=== PATIENT | female | born 2000 | race Caucasian/White ===

== ENCOUNTER 2020-02-11 21:32 | Emergency (ER) | payer BC ==
--- NOTE | 2020-02-11 21:54 | EDM.PDOC ---
ED HPI GENERAL MEDICAL PROBLEM - General Chief Complaint: Respiratory Problem Stated Complaint: CHEST PAIN Time Seen by Provider: 02/11/20 21:45 Source of Information: Reports: Patient History Limitations: Reports: No Limitations - History of Present Illness INITIAL COMMENTS - FREE TEXT/NARRATIVE: pt is 10 days since diagnosis with COVID , developed chest radiation to the arm and sob has low grade fever has no medical problems Onset: Today Onset Date: 02/12/20 Duration: Waxing/Waning Location: Reports: Chest Quality: Reports: Ache Severity: Mild Improves with: Reports: None Worsens with: Reports: None Context: Reports: Activity Associated Symptoms: Reports: Diaphoresis, Malaise - Related Data Allergies Allergy/AdvReac Type Severity Reaction Status Date / Time amoxicillin Allergy Rash Verified 02/11/20 22:11 Home Meds: Home Meds dexAMETHasone [Dexamethasone] 6 mg PO DAILY 10 Days tab 02/12/20 [Rx] ED ROS GENERAL - Review of Systems Review Of Systems: See Below Constitutional: Reports: No Symptoms HEENT: Reports: No Symptoms Respiratory: Reports: Shortness of Breath, Pleuritic Chest Pain Cardiovascular: Reports: No Symptoms Endocrine: Reports: No Symptoms GI/Abdominal: Reports: No Symptoms Musculoskeletal: Reports: No Symptoms Skin: Reports: No Symptoms Neurological: Reports: No Symptoms Psychiatric: Reports: No Symptoms Hematologic/Lymphatic: Reports: No Symptoms Immunologic: Reports: No Symptoms ED EXAM, GENERAL - Physical Exam Exam: See Below Exam Limited By: No Limitations General Appearance: Alert, WD/WN, No Apparent Distress Eye Exam: Bilateral Eye: EOMI Ears: Normal External Exam Nose: Normal Inspection Throat/Mouth: Normal Oropharynx Head: Atraumatic, Normocephalic Neck: Supple, Non-Tender Respiratory/Chest: No Respiratory Distress, Lungs Clear Cardiovascular: Normal Peripheral Pulses, Regular Rate, Rhythm GI/Abdominal: Soft, Non-Tender Neurological: Alert, Oriented, CN II-XII Intact Psychiatric: Normal Affect, Normal Mood Skin Exam: Warm, Dry, Intact Course - Vital Signs Last Recorded V/S: Last Vital Signs Temp 36.7 C 02/11/20 22:12 Pulse 89 02/11/20 22:12 Resp 22 H 02/11/20 22:12 BP 131/74 02/11/20 22:12 Pulse Ox 100 02/11/20 22:12 - Orders/Labs/Meds Orders: Active Orders 24 hr Category Date Time Status EKG Documentation Completion [RC] ASDIRECTED Care 02/11/20 21:53 Active Chest wo Cont [CT] Stat Exams 02/11/20 21:48 Taken EKG 12 Lead [EK] Routine Ther 02/11/20 21:53 Ordered Labs: Laboratory Tests 02/11/20 02/11/20 02/11/20 Range/Units 22:05 22:05 22:05 WBC 7.1 (3.0-10.3) x10-3/uL RBC 4.69 (3.60-5.20) x10(6)uL Hgb 14.7 (11.4-15.5) g/dL Hct 43.7 (34.2-48.2) % MCV 93.1 (76.7-100.5) fL MCH 31.3 (23.9-33.9) pg MCHC 33.6 (31.9-34.8) g/dL RDW 12.4 (12.3-16.5) % Plt Count 228 (151-488) x10(3)uL MPV 9.3 (7.1-12.4) fL Neut % (Auto) 51.3 (30.8-76.2) % Lymph % (Auto) 40.2 (18.4-52.1) % Lyon % (Auto) 6.6 (4.4-15.7) % Eos % (Auto) 1.2 (0.6-8.1) % Baso % (Auto) 0.7 (0.2-1.5) % Neut # (Auto) 3.7 (1.5-6.3) x10-3/uL Lymph # (Auto) 2.9 (1.0-4.4) x10-3/uL Lyon # (Auto) 0.5 (0.3-1.0) x10-3/uL Eos # (Auto) 0.1 (0.0-0.8) x10-3/uL Baso # (Auto) 0.1 (0.0-0.1) x10-3/uL D-Dimer, Quantitative 0.37 (0.0-0.59) mg/LFEU C-Reactive Protein 0.2 L (0.5-0.9) mg/dL Urine Color (YELLOW) Urine Appearance (CLEAR) Urine pH (5.0-6.5) Ur Specific Leslie (1.010-1.025) Urine Protein (NEGATIVE) mg/dL Urine Glucose (UA) (NORMAL) mg/dL Urine Ketones (NEGATIVE) mg/dL Urine Occult Blood (NEGATIVE) Urine Nitrite (NEGATIVE) Urine Bilirubin (NEGATIVE) Urine Urobilinogen (NEGATIVE) mg/dL Ur Leukocyte Esterase (NEGATIVE) Urine RBC (0-5) Urine WBC (0-5) Ur Squamous Epith Cells (NS,R,O) Urine Bacteria (NS) Urine HCG, Qual (NEGATIVE) 02/11/20 02/11/20 Range/Units 22:24 22:24 WBC (3.0-10.3) x10-3/uL RBC (3.60-5.20) x10(6)uL Hgb (11.4-15.5) g/dL Hct (34.2-48.2) % MCV (76.7-100.5) fL MCH (23.9-33.9) pg MCHC (31.9-34.8) g/dL RDW (12.3-16.5) % Plt Count (151-488) x10(3)uL MPV (7.1-12.4) fL Neut % (Auto) (30.8-76.2) % Lymph % (Auto) (18.4-52.1) % Lyon % (Auto) (4.4-15.7) % Eos % (Auto) (0.6-8.1) % Baso % (Auto) (0.2-1.5) % Neut # (Auto) (1.5-6.3) x10-3/uL Lymph # (Auto) (1.0-4.4) x10-3/uL Lyon # (Auto) (0.3-1.0) x10-3/uL Eos # (Auto) (0.0-0.8) x10-3/uL Baso # (Auto) (0.0-0.1) x10-3/uL D-Dimer, Quantitative (0.0-0.59) mg/LFEU C-Reactive Protein (0.5-0.9) mg/dL Urine Color Yellow (YELLOW) Urine Appearance Clear (CLEAR) Urine pH 7.0 H (5.0-6.5) Ur Specific Leslie 1.005 L (1.010-1.025) Urine Protein Negative (NEGATIVE) mg/dL Urine Glucose (UA) Normal (NORMAL) mg/dL Urine Ketones Negative (NEGATIVE) mg/dL Urine Occult Blood Negative (NEGATIVE) Urine Nitrite Negative (NEGATIVE) Urine Bilirubin Negative (NEGATIVE) Urine Urobilinogen Normal (NEGATIVE) mg/dL Ur Leukocyte Esterase Negative (NEGATIVE) Urine RBC 0-5 (0-5) Urine WBC 0-5 (0-5) Ur Squamous Epith Cells Occasional (NS,R,O) Urine Bacteria Rare H (NS) Urine HCG, Qual Negative (NEGATIVE) Meds: Medications Discontinued Medications Generic Name Dose Route Start Last Admin Trade Name Martin PRN Reason Stop Dose Admin Dexamethasone 8 mg 02/11/20 21:49 02/11/20 22:25 Dexamethasone IVPUSH 02/11/20 21:50 8 mg ONETIME ONE Administration Sodium Chloride 1,000 mls @ 999 mls/hr 02/11/20 21:49 02/11/20 22:25 Normal Saline IV 02/11/20 22:49 999 mls/hr .BOLUS ONE Administration Ketorolac Tromethamine 30 mg 02/11/20 22:17 02/11/20 22:25 Toradol IVPUSH 02/11/20 22:18 30 mg ONETIME ONE Administration - Re-Assessments/Exams Free Text/Narrative Re-Assessment/Exam: 02/12/20 00:24 Work up done for patient CT chest negative .Ekg is normal D-dimer negative pt responded well to decadron and toradol Departure - Departure Time of Disposition: 12:30 Disposition: Home, Self-Care 01 Condition: Good Clinical Impression: Acute respiratory disease due to COVID-19 virus, Anterior chest wall pain - Discharge Information *PRESCRIPTION DRUG MONITORING PROGRAM REVIEWED*: Not Applicable *COPY OF PRESCRIPTION DRUG MONITORING REPORT IN PATIENT ISATU: Not Applicable Prescriptions: dexAMETHasone [Dexamethasone] 6 mg PO DAILY 10 Days tab Instructions: COVID-19 Frequently Asked Questions, COVID-19: How to Protect Yourself and Others - CDC, Viral Respiratory Infection Referrals: Zoila Kwon PA-C [Primary Care Provider] - Forms: ED Department Discharge Additional Instructions: 1) Complete course of dexamethasone 2) if you develop chest wall pain again , OK to use Ibuprofen 3) take tylenol for fevers Sepsis Event Note (ED) - Focused Exam Vital Signs: Vital Signs Temp Pulse Resp BP Pulse Ox 02/11/20 22:12 36.7 C 89 22 H 131/74 100 - My Orders Last 24 Hours: My Active Orders 02/11/20 21:48 Chest wo Cont [CT] Stat 02/11/20 21:53 EKG Documentation Completion [RC] ASDIRECTED EKG 12 Lead [EK] Routine - Assessment/Plan Last 24 Hours: My Active Orders 02/11/20 21:48 Chest wo Cont [CT] Stat 02/11/20 21:53 EKG Documentation Completion [RC] ASDIRECTED EKG 12 Lead [EK] Routine
[2020-02-11] MEDS: Ketorolac 30 MG/ML SDV IVPUSH ONE (22:25)
[2020-02-11] MEDS: Sodium Chloride 0.9% 1,000 ML IV ONE (22:25)
[2020-02-11] MEDS: Dexamethasone 4 MG/ML 5 ML MDV IVPUSH ONE (22:25)
== END 2020-02-12 00:40 | disposition home or self-care (01) ==
LOC: FB.ED 21:32
DX: U07.1 COVID-19 (principal); Z88.0 Allergy status to penicillin
CPT/HCPCS: 71250; 81001; 81025; 85025; 85379; 86140; 93005; 96374; 96375; 99285-25; J1100; J1885; J7030